=== PATIENT | female | born 1985 | race African-American/Black ===

== ENCOUNTER 2018-11-15 23:32 | Emergency (ER) | payer OTHER ==
[~2018-11-15] VITALS: Ht 167.6 cm; Wt 86.6 kg
[~2018-11-15 23:32] MED LIST: ATARAX OR; DEP0PROVERA IM; FIORICET PO; HYDROCORTISONE30 G1 EX; KEFLEX500 MG OR; NAPROSYN500 MG OR; NAPROSYN500 MG PO; NO HOME MEDS; ROBAXIN-750750 MG PO; ULTRAM50 M1 PO; [UNRECOGNIZED DRUG - OTHER] EX; robitussin ac OR
[2018-11-16 01:01] LABS: URINE BILIRUBIN - DIPSTICK NEGATIVE (NEGATIVE); URINE BLOOD DIPSTICK MODERATE (NEGATIVE); URINE COLOR YELLOW; URINE GLUCOSE - DIPSTICK NEGATIVE (NEGATIVE); URINE KETONE TRACE mg/dL (NEGATIVE); URINE NITRITE - DIPSTICK NEGATIVE (Negative); URINE PH 7.5 (4.5-8.0); URINE PROTEIN - DIPSTICK 100 mg/dL (NEG-TRACE); URINE SPECIFIC GRAVITY 1.015
[2018-11-16 01:04] LABS: URINE LEUK ESTERASE SMALL (NEGATIVE)
[2018-11-16 01:16] LABS: URINE BACTERIA MANY hpf; URINE MUCUS FEW hpf (NONE-FEW); URINE SQUAMOUS EPITHELIAL CELL MODERATE EPI/hpf (0-FEW); URINE WBC 50-100 WBC/hpf (0-5)
[2018-11-16] MEDS ORDERED: ZOFRAN4 MG/TAB PO (01:34)
[2018-11-16] MEDS ORDERED: CIPROFLOXACN500 MG PO (01:34)
[2018-11-16 02:00] VITALS: BP 121/80
== END 2018-11-16 02:00 | disposition home or self-care (01) | DRG 690 ==
LOC: ED 23:32
PROVIDERS: Emergency Medicine
DX: N39.0 Urinary tract infection, site not specified (principal); B96.20 Unspecified Escherichia coli [E. coli] as the cause of diseases classified elsewhere; R50.9 Fever, unspecified; R11.2 Nausea with vomiting, unspecified